=== PATIENT | male | born 1990 | race Caucasian/White ===

== ENCOUNTER 2019-07-04 10:17 | Inpatient (IN) | payer BC ==
[~2019-07-04] VITALS: Ht 167.6 cm; Wt 57.6 kg
[2019-07-04] MEDS ORDERED: LORazepam 1 MG tablet PO PRN (13:00)
[2019-07-04] MEDS ORDERED: magnesium hydroxide 30ml (MOM) UD suspension PO PRN (13:00)
[2019-07-04] MEDS ORDERED: loperamide 2mg capsule PO PRN (13:00)
[2019-07-04] MEDS ORDERED: mag hydrox/Alum hydrox/simeth 30ml oral suspension PO PRN (13:00)
[2019-07-04] MEDS ORDERED: acetaminophen 325mg tablet PO PRN (13:00)
[2019-07-04 13:30] VITALS: BP 116/80
[2019-07-04] MEDS ORDERED: QUET100T33 PO (16:10)
[2019-07-04] MEDS ORDERED: ESCI10TA54 PO (16:10)
[2019-07-04] MEDS ORDERED: LURA80TA3 PO (16:10)
[2019-07-04] MEDS ORDERED: LAMO25TA5 PO (16:10)
[2019-07-04] MEDS ORDERED: ATOM25CA6 PO (16:10)
[2019-07-04] MEDS ORDERED: BUPR1FIL3 SL (16:10)
--- NOTE | 2019-07-04 16:35 | NUR ---
Nursing Admission Note: Pt brought to [facility] from [facility] via [employer]. transport due to Pt being on a 5150 due to DTS. Pt called amirah stating he wanted to end his life. Pt reports taking 20 ativan and 2 shots of vodka. Pt reports a Hx of bipolar d/o and opiate dep. Pt has had strained relations with mom whom he lives with and provides IHSS care to. Pt is calm and cooperative and engages in conversation willingly. Appears depressed with blunted affect. Reports no current SI, but has had SI in past but never acted on the thoughts until this time. Pt given unit orientation; skin check completed with nothing noted; belongings inventoried and valuables placed in unit safe. Admission and assessments completed.
[2019-07-04] MEDS: acetaminophen 325mg tablet PO PRN (17:39)
[2019-07-04] MEDS: ATOMOXETINE HCL PO SCH (18:55)
[2019-07-04] MEDS ORDERED: LAMO100T PO (19:15)
[2019-07-04] MEDS ORDERED: LAMO25TA94 PO (19:38)
[2019-07-04 20:00] VITALS: BP 125/78
[2019-07-04] MEDS: quetiapine 100mg tablet PO SCH (20:24)
[2019-07-04] MEDS: lurasidone 60mg tablet PO SCH (20:24)
[2019-07-04] MEDS: lurasidone 20mg tablet PO SCH (20:24)
--- NOTE | 2019-07-05 02:50 | NUR ---
Nursing Progress Note: Legal hold: 5150 Client on voluntary/involuntary status for DTS. Report received from MARIO Quiles with use of SBAR. Why are they here: Patient brought to [facility] from [facility] via [employer]. transport due to Pt being on a 5150 due to DTS. Patient called friend stating he wanted to end his life. Patient reports taking 20 Ativan and 2 shots of vodka. Patient reports a Hx of bipolar d/o and opiate dep. Pt has had strained relations with mom whom he lives with and provides SS care to. Assessment What has happened this shift: Patient up and on the unit periodically throughout the shift. He denies SI/HI, AH/VH and seems to be minimizing his SI attempt. Patient spends his time talking about going home and reasons why he needs to go. He requests his medications early and is informed that medications cant be given till 1999 when they are scheduled. Patient verbalizes understanding. HE eats evening snack in the group room this evening then sits in a hallway chair waiting for his medications. Medications administered as ordered and after med pass patient goes directly to bed. S/I, H/I: Denies A/VH: Denies Sleep: Currently sleeping, see sleep assessment ADL's: Independent Group attendance: No groups this shift Were meds taken: Yes Any med S/E None noted or observed Mental Status Exam Appearance: WNL, wearing green scrubs Eye contact: Direct Behavior: Calm, cooperative Speech: Normal volume, rate and rhythm Mood: Euthymic Affect: Congruent to mood Thought process: Linear Thought Content: Focused on discharge and going home Cognition: A&O x4 Insight: Poor Judgment: Poor Interventions PRN's used: None Therapeutic interventions: 1:1 assessment with patient. Encouraged patient to express thoughts and feelings, monitored behavior and need for intervention, medication administration/education/monitoring, Q 15 min safety checks. Restraints/seclusion/emergency medication: NN/A Justification of Continued Inpatient Treatment: Continued therapeutic support and medication management needed to provide stabilization, prevent decompensation, and improve coping mechanisms decreasing risk to patient and re-admittance.
[2019-07-05] MEDS ORDERED: lamoTRIgine 100mg tablet PO SCH (08:00)
[2019-07-05] MEDS: ATOMOXETINE HCL PO SCH (08:00)
[2019-07-05 08:06] VITALS: BP 108/66
[2019-07-05] MEDS: lamoTRIgine 25mg tablet PO SCH (08:13)
[2019-07-05] MEDS: buprenorphine/naloxone 8MG-2MG SUBlingual film SL SCH (08:13)
[2019-07-05] MEDS: ESCITALOPRAM OXALATE 5 MG TABLET PO SCH (08:13)
[2019-07-05 08:58] LABS: CHOL/HDL RATIO 3.4 (0.00-4.99); CHOLESTEROL 152 MG/DL (0-200); HDL CHOLESTEROL 45 MG/DL (35-60); LDL CHOLESTEROL 93 MG/DL (50-100); TRIGLYCERIDES 101 MG/DL (20-135)
[2019-07-05 09:12] LABS: HEMOGLOBIN A1C 5.3 % (4.5-6.2)
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
[2019-07-05] MEDS ORDERED: FLU VACC QS2019-20 36MOS UP/PF 60 MCG/0.5 ML SYRINGE IMVAC ONE (10:00)
[2019-07-05] MEDS ORDERED: pneumococcal 23-VAL P-sac vacc 25 mcg/0.5ml vial IMVAC ONE (10:00)
[2019-07-05] MEDS: hydrOXYzine 25 MG tablet PO PRN (12:48)
--- NOTE | 2019-07-05 16:30 | NUR ---
Nursing Progress Note: [facility] Legal hold: 5150 Client on voluntary/involuntary status for DTS. Report received from TORY Price with use of SBAR. Why are they here: Patient brought to [facility] from [facility] via [employer] transport due to Pt being on a 5150 due to DTS. Patient called friend stating he wanted to end his life. Patient reports taking 20 Ativan and 2 shots of vodka. Patient reports a Hx of bipolar d/o and opiate dep. Pt has had strained relations with mom whom he lives with and provides IHSS care to. Assessment What has happened this shift: Patient resting on bed at change of shift. He denies SI/HI, AH/VH and seems to be minimizing his recent SI attempt. Pt mostly concerned with getting Strattera which she was told is not a medication that is carried in the hospital pharmacy so she would need to bring it from home. Pt reports she is unable to do so so junior copywriter encouraged her to speak with the provider about finding an alternative medication to address this need. S/I, H/I: Denies A/VH: Denies Sleep: 8hrs NOC ADL's: Independent Group attendance: Yes Were meds taken: Yes Any med S/E None noted or observed Mental Status Exam Appearance: WNL, wearing green scrubs, long hair, lip ring Eye contact: Direct Behavior: Calm, cooperative Speech: Normal volume, rate and rhythm Mood: Euthymic Affect: Congruent to mood Thought process: Linear Thought Content: Focused on discharge and Strattera Cognition: A&O x4 Insight: Poor Judgment: Poor Interventions PRN's used: Atarax X1 Therapeutic interventions: 1:1 assessment with patient. Encouraged patient to express thoughts and feelings, monitored behavior and need for intervention, medication administration/education/monitoring, Q 15 min safety checks. Restraints/seclusion/emergency medication: N/A Justification of Continued Inpatient Treatment: Continued therapeutic support and medication management needed to provide stabilization, prevent decompensation, and improve coping mechanisms decreasing risk to patient and re-admittance.
[2019-07-05] MEDS: acetaminophen 325mg tablet PO PRN (18:36)
[2019-07-05 19:41] VITALS: BP 136/87
[2019-07-05] MEDS: lurasidone 60mg tablet PO SCH (20:44)
[2019-07-05] MEDS: lurasidone 20mg tablet PO SCH (20:45)
[2019-07-05] MEDS: quetiapine 100mg tablet PO SCH (20:46)
--- NOTE | 2019-07-06 03:15 | NUR ---
Nursing Progress Note: Legal hold: 5150 Client on voluntary/involuntary status for DTS. Report received from TORY Brunson with use of SBAR. Why are they here: Patient brought to [facility] from [facility] via [employer] transport due to Pt being on a 5150 due to DTS. Patient called friend stating he wanted to end his life. Patient reports taking 20 Ativan and 2 shots of vodka. Patient reports a Hx of bipolar d/o and opiate dep. Pt has had strained relations with mom whom he lives with and provides SS care to. Assessment What has happened this shift: Patient up in the hallway at the beginning of shift. He approached nursing staff to locate his nurse and requested Tylenol for L arm/wrist pain. Tylenol was effective. Patient showered this shift. He denies SI, HI, A/VH. Patient claimed going back home to live with his mom in [place] and needing transportation upon discharge. Patient endorsed feeling safe in his home environment. He added, "my mom and I have been able to make amends over phone calls." Patient denies SI, HI, A/VH. S/I, H/I: Denies A/VH: Denies Sleep: see sleep assessment ADL's: Independent Group attendance: No groups this shift Were meds taken: Yes Any med S/E None reported or observed Mental Status Exam Appearance: Clean, well groomed, wearing green scrubs Eye contact: Direct Behavior: Calm, cooperative Speech: Normal volume, rate and rhythm Mood: Euthymic Affect: Congruent to mood Thought process: Linear Thought Content: Focused on discharge and going home Cognition: A&O x4 Insight: Poor Judgment: Poor Interventions PRN's used: Tylenol Therapeutic interventions: 1:1 assessment with patient. Encouraged patient to express thoughts and feelings, monitored behavior and need for intervention, medication administration/education/monitoring, Q 15 min safety checks. Restraints/seclusion/emergency medication: N/A Justification of Continued Inpatient Treatment: Continued therapeutic support and medication management needed to provide stabilization, prevent decompensation, and improve coping mechanisms decreasing risk to patient and re-admittance.
[2019-07-06 07:00] VITALS: BP 101/71
[2019-07-06] MEDS: ATOMOXETINE HCL PO SCH (08:00)
[2019-07-06] MEDS: ESCITALOPRAM OXALATE 5 MG TABLET PO SCH (08:03)
[2019-07-06] MEDS: lamoTRIgine 25mg tablet PO SCH (08:03)
[2019-07-06] MEDS: buprenorphine/naloxone 8MG-2MG SUBlingual film SL SCH (08:04)
--- NOTE | 2019-07-06 10:32 | NUR ---
DISCHARGE PLANNING Met with Ct this morning. He reported he talked to his mom and plans on returning to his mom's house. He reported he plans on visiting his girlfriend in [place] before making the decision to move out there. He reported he can call and make an appt with his psychiatrist as the office is closed today. Called [facility] to request transport. Left message. MARY ELLEN Titus
--- NOTE | 2019-07-06 12:02 | NUR ---
DISCHARGE PLANNING Suleman Magana is going to seed cone pick[facility] Ct at 1:30 pm to transport him back to his apartment in [place]. Ct reported he will call his psychiatrist to make a follow up appt as the office is not open today for conventional mortgage underwriter to make the appt. MARY ELLEN Titus
--- NOTE | 2019-07-06 13:18 | NUR ---
Discharge Note: Pt. 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 Pt. is A&Ox4. Pt. in no apparent psychological or emotional distress. Pt. denies SI/HI, A/V Hallucinations. RN instructed pt. on F/U plans and home medications and pt. verbalized understanding. Pt. discharged with all belongings. Pt. did not need scripts.
[2019-07-06] MEDS: hydrOXYzine 25 MG tablet PO PRN (13:25)
== END 2019-07-06 13:38 | disposition home or self-care (01) | DRG 885 ==
LOC: ADULT MH 10:17
PROVIDERS: ADMIT Psychiatry & Neurology Psychiatry; ATTEND Psychiatry & Neurology Psychiatry
DX: F31.9 Bipolar disorder, unspecified (principal); R45.851 Suicidal ideations; F90.9 Attention-deficit hyperactivity disorder, unspecified type; F12.10 Cannabis abuse, uncomplicated; F41.9 Anxiety disorder, unspecified; G43.909 Migraine, unspecified, not intractable, without status migrainosus; Z78.1 Physical restraint status; Z87.891 Personal history of nicotine dependence; Z28.21 Immunization not carried out because of patient refusal; Z79.899 Other long term (current) drug therapy
CPT/HCPCS: 36415; 80061; 83036; 87081; 99285; Z7610